=== PATIENT | male | born 1990 | race American Indian/Alaskan Native ===

== ENCOUNTER 2016-06-21 09:30 | Emergency (ER) | payer OTHER ==
[2016-06-21 10:11] LABS: Basophils % (Auto) 0.9 % (0.0-1.8); Eosinophils % (Auto) 1.2 % (0.0-4.3); Hematocrit 49.6 % (35.5-45.6); Hemoglobin 16.8 gm/dl (11.8-15.2); Mean Corpuscular HGB Conc 34 % (32-34); Mean Corpuscular Hemoglobin 31 pg (28-32); Mean Corpuscular Volume 91 fl (84-94); Platelet Count 203 K/mm3 (140-440); Red Blood Count 5.47 M/mm3 (3.65-5.03); Red Cell Distribution Width 14.3 % (13.2-15.2); White Blood Count 5.8 K/mm3 (4.5-11.0)
[2016-06-21 10:31] LABS: Alanine Aminotransferase 23 units/L (7-56); Albumin 4.3 g/dL (3.9-5); Albumin/Globulin Ratio 1.3 %; Alkaline Phosphatase 54 units/L (35-129); Anion Gap 22 mmol/L; Bilirubin,Total 1.2 mg/dL (0.1-1.2); Blood Urea Nitrogen 12 mg/dL (9-20); Calcium 9.3 mg/dL (8.4-10.2); Carbon Dioxide 23 mmol/L (22-30); Chloride 96.4 mmol/L (98-107); Glucose 74 mg/dL (75-100); Lipase 20 units/L (13-60); Potassium 4.1 mmol/L (3.6-5.0); Sodium 137 mmol/L (137-145); Total Protein 7.5 g/dL (6.3-8.2)
[2016-06-21 12:09] LABS: Bilirubin,Urine NEG (Negative); Blood,Urine NEG (Negative); Ketones,Urine 80 mg/dL (Negative); Leukocyte Esterase,Urine NEG (Negative); Mucus,Urine 2+ /HPF; Nitrite,Urine NEG (Negative)
--- NOTE | 2016-06-21 12:15 | Emergency Department Report ---
ED GI Bleed HPI - General Chief complaint: Abdominal Pain Stated complaint: STOMACH PAINS Time Seen by Provider: 06/21/16 11:17 Source: patient Mode of arrival: Ambulatory Limitations: No Limitations - History of Present Illness Initial comments: Patient complains of rectal pain and bleeding with bowel movements, patient states his been occurring for the past year and a half. Upon questioning patient also explains that he has frequent constipation. Patient says he has a diet made up mostly of "junk food". Patient denies anorexia, nausea vomiting diarrhea, abdominal pain, fever or chills, or testicular pain. Patient also denies any anal trauma. MD complaint: blood on toilet paper -: Gradual, month(s) (18) Radiation: other (rectal pain) Quality: dull Improves with: none Worsens with: bowel movement Context: other (constipation) Associated Symptoms: denies: abdominal pain, nausea, vomiting, epistaxis, fever/ chills, loss of appetite, malaise, easy bruising, rash, shortness of breath, syncope, weakness - Related Data Previous Rx's Medication Instructions Recorded Last Taken Type Docusate Sodium [Colace Clear CAP] 50 mg PO QDAY #150 capsule 06/21/16 Unknown Rx Glycerin [Glycerin Laxative] 5.4 gm RC QDAY #2 ml 06/21/16 Unknown Rx Allergies Allergy/AdvReac Type Severity Reaction Status Date / Time No Known Allergies Allergy Unverified 06/21/16 09:54 ED Review of Systems ROS: Stated complaint: STOMACH PAINS Other details as noted in HPI Constitutional: denies: chills, fever Eyes: denies: eye pain, eye discharge, vision change ENT: denies: ear pain, throat pain Respiratory: denies: cough, shortness of breath, wheezing Cardiovascular: denies: chest pain, palpitations Endocrine: no symptoms reported Gastrointestinal: constipation, hematochezia. denies: abdominal pain, nausea, vomiting, diarrhea, hematemesis Genitourinary: denies: urgency, dysuria Musculoskeletal: denies: back pain, joint swelling, arthralgia Skin: denies: rash, lesions Neurological: denies: headache, weakness, paresthesias, vertigo Psychiatric: denies: anxiety, depression Hematological/Lymphatic: denies: easy bleeding, easy bruising ED Past Medical Hx - Past Medical History Hx Hypertension: Yes - Surgical History Past Surgical History?: No - Social History Smoking Status: Current Every Day Smoker Substance Use Type: Alcohol, Cocaine, Marijuana, Methamphetamines - Medications Home Medications: Home Medications Medication Instructions Recorded Confirmed Last Taken Type Docusate Sodium [Colace Clear CAP] 50 mg PO QDAY #150 capsule 06/21/16 Unknown Rx Glycerin [Glycerin Laxative] 5.4 gm RC QDAY #2 ml 06/21/16 Unknown Rx ED Physical Exam - General Limitations: No Limitations General appearance: alert, in no apparent distress - Head Head exam: Present: atraumatic, normocephalic - Eye Eye exam: Present: normal appearance, PERRL, EOMI - ENT ENT exam: Present: mucous membranes moist - Neck Neck exam: Present: normal inspection - Respiratory Respiratory exam: Present: normal lung sounds bilaterally. Absent: respiratory distress, wheezes, rales, rhonchi, stridor, chest wall tenderness, accessory muscle use, decreased breath sounds, prolonged expiratory - Cardiovascular Cardiovascular Exam: Present: regular rate. Absent: systolic murmur, diastolic murmur, rubs, gallop - GI/Abdominal GI/Abdominal exam: Present: soft, normal bowel sounds. Absent: distended, tenderness, guarding, rebound, rigid - Rectal Rectal exam: Present: normal inspection, normal rectal tone. Absent: fecal impaction - exam: Present: normal inspection. Absent: testicular tenderness, urethral discharge, scrotal swelling - Extremities Exam Extremities exam: Present: normal inspection - Back Exam Back exam: Present: normal inspection. Absent: CVA tenderness (R), CVA tenderness (L) - Neurological Exam Neurological exam: Present: alert, oriented X3 - Psychiatric Psychiatric exam: Present: normal affect, normal mood - Skin Skin exam: Present: warm, dry, intact, normal color. Absent: rash ED Course Vital Signs 06/21/16 06/21/16 06/21/16 09:49 12:26 12:40 Temperature 98.8 F 98.1 F Pulse Rate 107 H 82 Respiratory 16 12 16 Rate Blood Pressure 138/94 Blood Pressure 124/85 [Left] O2 Sat by Pulse 97 98 Oximetry - Reevaluation(s) Reevaluation #1: 06/21/16 13:04 Heart rate 88 patient normotensive normal cardiac in no distress. ED Medical Decision Making - Lab Data Result diagrams: 06/21/16 10:00 06/21/16 10:00 Critical care attestation.: If time is entered above; I have spent that time in minutes in the direct care of this critically ill patient, excluding procedure time. ED Disposition Clinical Impression: Constipation Disposition: DISCHARGED TO HOME OR SELFCARE Is pt being admited?: No Condition: Stable Instructions: Constipation (ED) Prescriptions: Docusate Sodium [Colace Clear CAP] 50 mg PO QDAY #150 capsule Glycerin [Glycerin Laxative] 5.4 gm RC QDAY #2 ml Referrals: PRIMARY CARE, [Primary Care Provider] - 3-5 Days
[2016-06-21 12:41] VITALS: BP 124/85
--- NOTE | 2016-06-22 17:54 | Emergency Department Report ---
Blank Doc - Documentation Documentation: Patient return to the ED stating that he was here yesterday and discharged, states that he was supposed to receive a refill on his high blood pressure medicine but noticed it was not in his discharge paperwork, requesting refill on his benazepril and hydrochlorothiazide.
== END 2016-06-21 13:20 | disposition home or self-care (01) ==
LOC: ED 09:30
DX: K59.00 Constipation, unspecified (principal); I10 Essential (primary) hypertension; F17.200 Nicotine dependence, unspecified, uncomplicated; F12.10 Cannabis abuse, uncomplicated; F14.10 Cocaine abuse, uncomplicated; F15.10 Other stimulant abuse, uncomplicated
CPT/HCPCS: 36415; 80053; 81001; 83690; 85025; 99283

== ENCOUNTER 2017-03-22 02:31 | Emergency (ER) | payer SELFPAY ==
[2017-03-22 03:37] LABS: Basophils % (Auto) 0.8 % (0.0-1.8); Eosinophils % (Auto) 1.7 % (0.0-4.3); Hematocrit 43.6 % (35.5-45.6); Mean Corpuscular HGB Conc 34 % (32-34); Mean Corpuscular Hemoglobin 33 pg (28-32); Mean Corpuscular Volume 96 fl (84-94); Platelet Count 208 K/mm3 (140-440); Red Blood Count 4.55 M/mm3 (3.65-5.03); Red Cell Distribution Width 14.4 % (13.2-15.2); White Blood Count 5.9 K/mm3 (4.5-11.0)
[2017-03-22 03:38] VITALS: BP 114/70
[2017-03-22 04:03] LABS: Alanine Aminotransferase 27 units/L (7-56); Albumin 3.9 g/dL (3.9-5); Albumin/Globulin Ratio 1.3 %; Alkaline Phosphatase 50 units/L (35-129); Anion Gap 21 mmol/L; BUN/Creatinine Ratio 9; Blood Urea Nitrogen 7 mg/dL (9-20); Calcium 8.6 mg/dL (8.4-10.2); Carbon Dioxide 21 mmol/L (22-30); Chloride 101.4 mmol/L (98-107); Glucose 102 mg/dL (75-100); Lipase 34 units/L (13-60); Sodium 139 mmol/L (137-145); Total Protein 6.8 g/dL (6.3-8.2)
--- NOTE | 2017-03-22 11:31 | Emergency Department Report ---
ED Abdominal Pain HPI - General Chief Complaint: Abdominal Pain Stated Complaint: ABD PAIN Time Seen by Provider: 03/22/17 11:11 Source: patient Mode of arrival: Ambulatory Limitations: No Limitations - History of Present Illness Initial Comments: PT states he wants his liver checked. PT states he has been throwing up "green stuff" for a year. PT states he thinks he might have cirrhosis. PT reports occasional ETOH use. PT states he has a hx of a stomach ulcers MD Complaint: other (vomiting ) -: year(s) (one ) Location: diffuse Migration to: no migration Severity scale (0 -10): 3 Quality: cramping Consistency: intermittent Improves With: nothing Worsens With: vomiting Associated Symptoms: nausea, vomiting. denies: dysuria, hematemesis, hematochezia, hematuria - Related Data Previous Rx's Medication Instructions Recorded Last Taken Type Benazepril/Hydrochlorothiazide 1 each PO QDAY #30 tablet 06/22/16 Unknown Rx [Lotensin Hct 10-12.5 mg Tablet] Naproxen [Naprosyn TAB] 375 mg PO BID PRN #10 tablet 03/17/17 Unknown Rx Ondansetron [Zofran ODT TAB] 4 mg PO ONCE #8 tab.rapdis 03/22/17 Unknown Rx Allergies Allergy/AdvReac Type Severity Reaction Status Date / Time No Known Allergies Allergy Unverified 06/21/16 09:54 ED Review of Systems ROS: Stated complaint: ABD PAIN Other details as noted in HPI Comment: All other systems reviewed and negative Constitutional: malaise. denies: fever Cardiovascular: denies: chest pain Gastrointestinal: abdominal pain, nausea, vomiting. denies: hematemesis, melena , hematochezia Genitourinary: denies: dysuria, frequency, hematuria ED Past Medical Hx - Past Medical History Previous Medical History?: Yes Hx Hypertension: Yes Additional medical history: MS - Surgical History Past Surgical History?: No - Social History Smoking Status: Current Every Day Smoker Substance Use Type: Alcohol - Medications Home Medications: Home Medications Medication Instructions Recorded Confirmed Last Taken Type Benazepril/Hydrochlorothiazide 1 each PO QDAY #30 tablet 06/22/16 Unknown Rx [Lotensin Hct 10-12.5 mg Tablet] Naproxen [Naprosyn TAB] 375 mg PO BID PRN #10 tablet 03/17/17 Unknown Rx Ondansetron [Zofran ODT TAB] 4 mg PO ONCE #8 tab.rapdis 03/22/17 Unknown Rx ED Physical Exam - General Limitations: No Limitations General appearance: alert, in no apparent distress, other (thin) - Head Head exam: Present: atraumatic, normocephalic, normal inspection - Eye Eye exam: Present: normal appearance, PERRL, EOMI. Absent: conjunctival injection - ENT ENT exam: Present: normal exam, mucous membranes moist, normal external ear exam - Neck Neck exam: Present: normal inspection, full ROM - Respiratory Respiratory exam: Present: normal lung sounds bilaterally. Absent: respiratory distress, chest wall tenderness - Cardiovascular Cardiovascular Exam: Present: regular rate, normal rhythm, normal heart sounds - GI/Abdominal GI/Abdominal exam: Present: soft, normal bowel sounds. Absent: distended, tenderness, guarding, rebound, rigid - Extremities Exam Extremities exam: Present: normal inspection, full ROM, other (steady gait ) - Back Exam Back exam: Present: normal inspection, full ROM. Absent: tenderness, paraspinal tenderness, vertebral tenderness - Neurological Exam Neurological exam: Present: alert, oriented X3, normal gait - Skin Skin exam: Present: warm, dry, intact ED Course Vital Signs 03/22/17 03:10 Temperature 97.9 F Pulse Rate 86 Respiratory 18 Rate Blood Pressure 114/70 [Right] O2 Sat by Pulse 96 Oximetry - Reevaluation(s) Reevaluation #1: 03/22/17 12:50 PT aware of lab results. PT advised to decrease ETOH intake due to concern for cirrhosis. PT has been ambulatory in the ED, asking for food. - Pulse Oximetry Interpretation Digit-Finger Initial Pulse Oximetry Readin Actions Taken: none ED Medical Decision Making - Lab Data Result diagrams: 03/22/17 03:19 03/22/17 03:19 Laboratory Last Values WBC 5.9 K/mm3 (4.5-11.0) 03/22/17 03:19 RBC 4.55 M/mm3 (3.65-5.03) 03/22/17 03:19 Hgb 15.0 gm/dl (11.8-15.2) 03/22/17 03:19 Hct 43.6 % (35.5-45.6) 03/22/17 03:19 MCV 96 fl (84-94) H 03/22/17 03:19 MCH 33 pg (28-32) H 03/22/17 03:19 MCHC 34 % (32-34) 03/22/17 03:19 RDW 14.4 % (13.2-15.2) 03/22/17 03:19 Plt Count 208 K/mm3 (140-440) 03/22/17 03:19 Lymph % (Auto) 36.7 % (13.4-35.0) H 03/22/17 03:19 [place] % (Auto) 6.6 % (0.0-7.3) 03/22/17 03:19 Eos % (Auto) 1.7 % (0.0-4.3) 03/22/17 03:19 Baso % (Auto) 0.8 % (0.0-1.8) 03/22/17 03:19 Lymph # 2.2 K/mm3 (1.2-5.4) 03/22/17 03:19 [place] # 0.4 K/mm3 (0.0-0.8) 03/22/17 03:19 Eos # 0.1 K/mm3 (0.0-0.4) 03/22/17 03:19 Baso # 0.1 K/mm3 (0.0-0.1) 03/22/17 03:19 Seg Neutrophils % 54.2 % (40.0-70.0) 03/22/17 03:19 Seg Neutrophils # 3.2 K/mm3 (1.8-7.7) 03/22/17 03:19 Sodium 139 mmol/L (137-145) 03/22/17 03:19 Potassium 4.0 mmol/L (3.6-5.0) 03/22/17 03:19 Chloride 101.4 mmol/L (98-107) 03/22/17 03:19 Carbon Dioxide 21 mmol/L (22-30) L 03/22/17 03:19 Anion Gap 21 mmol/L 03/22/17 03:19 BUN 7 mg/dL (9-20) L 03/22/17 03:19 Creatinine 0.8 mg/dL (0.8-1.5) 03/22/17 03:19 Estimated GFR > 60 ml/min 03/22/17 03:19 BUN/Creatinine Ratio 9 % 03/22/17 03:19 Glucose 102 mg/dL (75-100) H 03/22/17 03:19 Calcium 8.6 mg/dL (8.4-10.2) 03/22/17 03:19 Total Bilirubin 0.40 mg/dL (0.1-1.2) 03/22/17 03:19 AST 39 units/L (5-40) 03/22/17 03:19 ALT 27 units/L (7-56) 03/22/17 03:19 Alkaline Phosphatase 50 units/L (35-129) 03/22/17 03:19 Total Protein 6.8 g/dL (6.3-8.2) 03/22/17 03:19 Albumin 3.9 g/dL (3.9-5) 03/22/17 03:19 Albumin/Globulin Ratio 1.3 % 03/22/17 03:19 Lipase 34 units/L (13-60) 03/22/17 03:19 Urine Color Yellow (Yellow) 03/22/17 11:51 Urine Turbidity Clear (Clear) 03/22/17 11:51 Urine pH 5.0 (5.0-7.0) 03/22/17 11:51 Ur Specific [place] 1.020 (1.003-1.030) 03/22/17 11:51 Urine Protein <15 mg/dl mg/dL (Negative) 03/22/17 11:51 Urine Glucose (UA) Neg mg/dL (Negative) 03/22/17 11:51 Urine Ketones Tr mg/dL (Negative) 03/22/17 11:51 Urine Blood Mod (Negative) 03/22/17 11:51 Urine Nitrite Neg (Negative) 03/22/17 11:51 Urine Bilirubin Neg (Negative) 03/22/17 11:51 Urine Urobilinogen 2.0 mg/dL (<2.0) 03/22/17 11:51 Ur Leukocyte Esterase Neg (Negative) 03/22/17 11:51 Urine WBC (Auto) 2.0 /HPF (0.0-6.0) 03/22/17 11:51 Urine RBC (Auto) < 1.0 /HPF (0.0-6.0) 03/22/17 11:51 U Epithel Cells (Auto) < 1.0 /HPF (0-13.0) 03/22/17 11:51 Urine Mucus Few /HPF 03/22/17 11:51 Urine Sperm Few /HPF (BEH[employer]IOR[employer]ES DEPARTMENT CHAIR) 03/22/17 11:51 - Differential Diagnosis gerd, cyclic vomiting, elevated liver enzymes Critical Care Time: No Critical care attestation.: If time is entered above; I have spent that time in minutes in the direct care of this critically ill patient, excluding procedure time. ED Disposition Clinical Impression: Cyclical vomiting Qualifiers: Vomiting Intractability: non-intractable Nausea presence: with nausea Qualified Code(s): G43.A0 - Cyclical vomiting, not intractable Disposition: TO HOME OR SELFCARE Is pt being admited?: No Does the pt Need Aspirin: No Condition: Stable Instructions: Acute Nausea and Vomiting (ED) Prescriptions: Ondansetron [Zofran ODT TAB] 4 mg PO ONCE #8 tab.rapdis Referrals: PRIMARY CARE, [Primary Care Provider] - 3-5 Days LENNY TO MD [Staff Physician] - 3-5 Days [facility] [Outside] - 3-5 Days Time of Disposition: 13:01
[2017-03-22 12:15] LABS: Bilirubin,Urine NEG (Negative); Blood,Urine MOD (Negative); Ketones,Urine TR mg/dL (Negative); Leukocyte Esterase,Urine NEG (Negative); Mucus,Urine FEW /HPF; Nitrite,Urine NEG (Negative); Protein,Urine <15 mg/dL mg/dL (Negative); RBC,Urine < 1.0 /HPF (0.0-6.0); Sperm,Urine FEW /HPF (NP)
[2017-03-22] MEDS ORDERED: ZOFRAN ODT PO ONE (12:48)
== END 2017-03-22 13:11 | disposition home or self-care (01) ==
LOC: ED 02:31
DX: G43.A0 Cyclical vomiting, in migraine, not intractable (principal); I10 Essential (primary) hypertension; F17.210 Nicotine dependence, cigarettes, uncomplicated
CPT/HCPCS: 36415; 80053; 81001; 83690; 85025; 99283; Q0162

== ENCOUNTER 2017-04-10 08:37 | Emergency (ER) | payer SELFPAY ==
[2017-04-10 19:04] VITALS: BP 115/79
--- NOTE | 2017-04-10 19:16 | Emergency Department Report ---
ED General Adult HPI - General Chief complaint: Skin/Abscess/Foreign Body Stated complaint: hemoroids Time Seen by Provider: 04/10/17 16:41 Source: patient Mode of arrival: Ambulatory Limitations: No Limitations - History of Present Illness Initial comments: This is a 26-year-old male nontoxic, well nourished in appearance, no acute signs of distress presents to the ED with c/o of chronic intermittent hemorrhoids x2 years. Patient stated this comes and goes. Patient denies follow- up with a primary care doctor and stated he only came in today because it was started to hurt again. Patient denies any rectal bleeding, nausea, vomiting, chest pain, fever, chills, headache, stiff neck, numbness, tingling, back pain. Patient denies any allergies. PMH includes HTN. MD Complaint: Hemorrhoids -: year(s) (2) Radiation: non-radiation Severity scale (0 -10): 8 Quality: aching Consistency: constant Improves with: none Worsens with: none Associated Symptoms: denies other symptoms. denies: confusion, chest pain, cough, diaphoresis, fever/chills, headaches, loss of appetite, malaise, nausea/ vomiting, rash, seizure, shortness of breath, syncope, weakness Treatments Prior to Arrival: none - Related Data Previous Rx's Medication Instructions Recorded Last Taken Type Benazepril/Hydrochlorothiazide 1 each PO QDAY #30 tablet 06/22/16 Unknown Rx [Lotensin Hct 10-12.5 mg Tablet] Naproxen [Naprosyn TAB] 375 mg PO BID PRN #10 tablet 03/17/17 Unknown Rx Ondansetron [Zofran ODT TAB] 4 mg PO ONCE #8 tab.rapdis 03/22/17 Unknown Rx Docusate Sodium [Colace] 100 mg PO BID PRN #30 capsule 04/10/17 Unknown Rx Hydrocortisone/Lidocaine/Aloe 1 each RC Q8H 7 Days #1 kit 04/10/17 Unknown Rx [Lidocaine-Hc 2-2% Cream Kit] Allergies Allergy/AdvReac Type Severity Reaction Status Date / Time No Known Allergies Allergy Unverified 06/21/16 09:54 ED Review of Systems ROS: Stated complaint: hemoroids Other details as noted in HPI Constitutional: denies: chills, fever Eyes: denies: eye pain, eye discharge, vision change ENT: denies: ear pain, throat pain Respiratory: denies: cough, shortness of breath, wheezing Cardiovascular: denies: chest pain, palpitations Endocrine: no symptoms reported Gastrointestinal: other (hemorrhoids). denies: abdominal pain, nausea, diarrhea Genitourinary: denies: urgency, dysuria Musculoskeletal: denies: back pain, joint swelling, arthralgia Skin: denies: rash, lesions Neurological: denies: headache, weakness, paresthesias Psychiatric: denies: anxiety, depression Hematological/Lymphatic: denies: easy bleeding, easy bruising ED Past Medical Hx - Past Medical History Previous Medical History?: Yes Hx Hypertension: Yes Additional medical history: MS - Surgical History Past Surgical History?: No - Social History Smoking Status: Current Every Day Smoker Substance Use Type: Alcohol - Medications Home Medications: Home Medications Medication Instructions Recorded Confirmed Last Taken Type Benazepril/Hydrochlorothiazide 1 each PO QDAY #30 tablet 06/22/16 Unknown Rx [Lotensin Hct 10-12.5 mg Tablet] Naproxen [Naprosyn TAB] 375 mg PO BID PRN #10 tablet 03/17/17 Unknown Rx Ondansetron [Zofran ODT TAB] 4 mg PO ONCE #8 tab.rapdis 03/22/17 Unknown Rx Docusate Sodium [Colace] 100 mg PO BID PRN #30 capsule 04/10/17 Unknown Rx Hydrocortisone/Lidocaine/Aloe 1 each RC Q8H 7 Days #1 kit 04/10/17 Unknown Rx [Lidocaine-Hc 2-2% Cream Kit] ED Physical Exam - General Limitations: No Limitations General appearance: alert, in no apparent distress - Head Head exam: Present: atraumatic, normocephalic, normal inspection - Eye Eye exam: Present: normal appearance, PERRL, EOMI. Absent: scleral icterus, conjunctival injection, nystagmus, periorbital swelling, periorbital tenderness Pupils: Present: normal accommodation - ENT ENT exam: Present: normal exam, normal orophraynx, mucous membranes moist, TM's normal bilaterally, normal external ear exam - Neck Neck exam: Present: normal inspection, full ROM. Absent: tenderness, meningismus, lymphadenopathy, thyromegaly - Respiratory Respiratory exam: Present: normal lung sounds bilaterally. Absent: respiratory distress, wheezes, rales, rhonchi, stridor, chest wall tenderness, accessory muscle use, decreased breath sounds, prolonged expiratory - Cardiovascular Cardiovascular Exam: Present: regular rate, normal rhythm, normal heart sounds. Absent: bradycardia, tachycardia, irregular rhythm, systolic murmur, diastolic murmur, rubs, gallop - GI/Abdominal GI/Abdominal exam: Present: soft, normal bowel sounds. Absent: distended, tenderness, guarding, rebound, rigid, diminished bowel sounds - Rectal Rectal exam: Present: deferred, hemorrhoids (Reducible. No signs of thrombus, bleeding. ) - Extremities Exam Extremities exam: Present: normal inspection, full ROM, normal capillary refill. Absent: tenderness, pedal edema, joint swelling, calf tenderness - Back Exam Back exam: Present: normal inspection, full ROM. Absent: tenderness, CVA tenderness (R), CVA tenderness (L), muscle spasm, paraspinal tenderness, vertebral tenderness, rash noted - Neurological Exam Neurological exam: Present: alert, oriented X3, CN II-XII intact, normal gait, reflexes normal - Psychiatric Psychiatric exam: Present: normal affect, normal mood - Skin Skin exam: Present: warm, dry, intact, normal color. Absent: rash ED Course Vital Signs 04/10/17 04/10/17 09:17 19:03 Temperature 98.5 F Pulse Rate 76 52 L Respiratory 16 18 Rate Blood Pressure 129/81 Blood Pressure 115/79 [Right] O2 Sat by Pulse 100 Oximetry - Reevaluation(s) Reevaluation #1: 04/10/17 19:19 Patient is speaking in full sentences with no signs of distress noted. ED Medical Decision Making - Medical Decision Making This is a 26-year-old male that presents with hemorrhoids. Patient is stable and was examined by me. Patient instructed about sitz bath and f/u with colorectal surgeon. Patient also was educated on increasing fiber intake and drinking enough fluid to keep his urine clear or pale yellow. Patient was instructed to seek medical attention is he has increased pain and swelling that are not controlled by treatment or medicine, has uncontrolled bleeding, difficulty having a bowel movement or unable to have a bowel movement or having pain or inflammation outside the area of the hemorrhoids. Patient was instructed to follow-up with a primary care doctor/colon rectal surgeon in 24 hours or if symptoms worsening and continue to return to the emergency room as soon as possible. Critical care attestation.: If time is entered above; I have spent that time in minutes in the direct care of this critically ill patient, excluding procedure time. ED Disposition Clinical Impression: Hemorrhoids Qualifiers: Hemorrhoid type: unspecified Qualified Code(s): K64.9 - Unspecified hemorrhoids Disposition: TO HOME OR SELFCARE Is pt being admited?: No Does the pt Need Aspirin: No Condition: Stable Instructions: Laxative, Stool Softeners (By mouth), Hemorrhoids (ED), High Fiber Diet (ED), Sitz Bath (GEN) Additional Instructions: Follow-up with a primary care doctor/colon rectal surgeon in 24 hours or if symptoms worsen and continue return to emergency room as soon as possible. Seek medical attention is he has increased pain and swelling that are not controlled by treatment or medicine, has uncontrolled bleeding, difficulty having a bowel movement or unable to have a bowel movement or having pain or inflammation outside the area of the hemorrhoids. Prescriptions: Docusate Sodium [Colace] 100 mg PO BID PRN #30 capsule PRN Reason: constaption Hydrocortisone/Lidocaine/Aloe [Lidocaine-Hc 2-2% Cream Kit] 1 each RC Q8H 7 Days #1 kit Referrals: PRIMARY CARE, [Primary Care Provider] - 3-5 Days LENNY TATUM MD [Staff Physician] - 3-5 Days JEYSON GASPAR MD [Staff Physician] - 3-5 Days [facility] [Outside] - 3-5 Days [facility] [Outside] - 3-5 Days Forms: Work/School Release Form(ED)
== END 2017-04-10 19:30 | disposition home or self-care (01) ==
LOC: ED 08:37
DX: K64.9 Unspecified hemorrhoids (principal); I10 Essential (primary) hypertension; F17.200 Nicotine dependence, unspecified, uncomplicated
CPT/HCPCS: 99282

== ENCOUNTER 2017-05-23 03:53 | Emergency (ER) | payer SELFPAY ==
[2017-05-23 04:06] VITALS: BP 114/79
== END 2017-05-23 06:00 | disposition left against medical advice (07) ==
LOC: ED 03:53
DX: Z53.21 Procedure and treatment not carried out due to patient leaving prior to being seen by health care provider (principal)

== ENCOUNTER 2017-06-27 10:19 | Emergency (ER) | payer SELFPAY ==
[2017-06-27] MEDS ORDERED: MOTRIN PO ONE (12:20)
--- NOTE | 2017-06-27 12:30 | Emergency Department Report ---
ED Lower Extremity HPI - General Chief Complaint: Extremity Injury, Lower Stated Complaint: ANKLE PAIN Time Seen by Provider: 06/27/17 12:20 Source: patient, EMS Mode of arrival: Wheelchair Limitations: Other - History of Present Illness Initial Comments: This is a 27-year-old male nontoxic, well nourished in appearance, no acute signs of distress presents to the ED with c/o of left ankle and foot pain x1 day. Patient stated that he jumped from a 2nd floor window in his grandmothers house. Patient stated he was playing around and just decided to jump. Patient denies any other injuries. Patient denies any numbness, tingling, fever, chills , headache, nausea, vomiting, chest pain, shortness of breathe. Patient denies any allergies. PMH includes HTN. MD Complaint: ankle injury, foot injury -: This morning Injury: Ankle: Left, Foot: Left Type of Injury: inversion Place: home Severity: mild Severity scale (0 -10): 8 Improves With: nothing Worsens With: weight bearing Context: fall Associated Symptoms: swelling, unable to bear weight. denies: snap/pop sensation, numbness, tingling, able to partially bear weight, ambulatory - Related Data Previous Rx's Medication Instructions Recorded Last Taken Type Benazepril/Hydrochlorothiazide 1 each PO QDAY #30 tablet 06/22/16 Unknown Rx [Lotensin Hct 10-12.5 mg Tablet] Naproxen [Naprosyn TAB] 375 mg PO BID PRN #10 tablet 03/17/17 Unknown Rx Ondansetron [Zofran ODT TAB] 4 mg PO ONCE #8 tab.rapdis 03/22/17 Unknown Rx Docusate Sodium [Colace] 100 mg PO BID PRN #30 capsule 04/10/17 Unknown Rx Hydrocortisone/Lidocaine/Aloe 1 each RC Q8H 7 Days #1 kit 04/10/17 Unknown Rx [Lidocaine-Hc 2-2% Cream Kit] Ibuprofen [Motrin] 600 mg PO Q8H PRN #30 tablet 06/27/17 Unknown Rx Allergies Allergy/AdvReac Type Severity Reaction Status Date / Time No Known Allergies Allergy Unverified 06/21/16 09:54 ED Review of Systems ROS: Stated complaint: ANKLE PAIN Other details as noted in HPI Constitutional: denies: chills, fever Eyes: denies: eye pain, eye discharge, vision change ENT: denies: ear pain, throat pain Respiratory: denies: cough, shortness of breath, wheezing Cardiovascular: denies: chest pain, palpitations Endocrine: no symptoms reported Gastrointestinal: denies: abdominal pain, nausea, diarrhea Genitourinary: denies: urgency, dysuria Musculoskeletal: arthralgia. denies: back pain, joint swelling Skin: denies: rash, lesions Neurological: denies: headache, weakness, paresthesias Psychiatric: denies: anxiety, depression Hematological/Lymphatic: denies: easy bleeding, easy bruising ED Past Medical Hx - Past Medical History Previous Medical History?: Yes Hx Hypertension: Yes Additional medical history: MS - Surgical History Past Surgical History?: Yes Additional Surgical History: hemorrhoids - Social History Smoking Status: Current Every Day Smoker Substance Use Type: Alcohol, Cocaine, Marijuana - Medications Home Medications: Home Medications Medication Instructions Recorded Confirmed Last Taken Type Benazepril/Hydrochlorothiazide 1 each PO QDAY #30 tablet 06/22/16 Unknown Rx [Lotensin Hct 10-12.5 mg Tablet] Naproxen [Naprosyn TAB] 375 mg PO BID PRN #10 tablet 03/17/17 Unknown Rx Ondansetron [Zofran ODT TAB] 4 mg PO ONCE #8 tab.rapdis 03/22/17 Unknown Rx Docusate Sodium [Colace] 100 mg PO BID PRN #30 capsule 04/10/17 Unknown Rx Hydrocortisone/Lidocaine/Aloe 1 each RC Q8H 7 Days #1 kit 04/10/17 Unknown Rx [Lidocaine-Hc 2-2% Cream Kit] Ibuprofen [Motrin] 600 mg PO Q8H PRN #30 tablet 06/27/17 Unknown Rx ED Physical Exam - General Limitations: Other General appearance: alert, in no apparent distress - Head Head exam: Present: atraumatic, normocephalic - Eye Eye exam: Present: normal appearance - ENT ENT exam: Present: mucous membranes moist - Neck Neck exam: Present: normal inspection - Respiratory Respiratory exam: Present: normal lung sounds bilaterally. Absent: respiratory distress - Cardiovascular Cardiovascular Exam: Present: regular rate, normal rhythm. Absent: systolic murmur, diastolic murmur, rubs, gallop - GI/Abdominal GI/Abdominal exam: Present: soft, normal bowel sounds - Rectal Rectal exam: Present: deferred - Extremities Exam Extremities exam: Present: normal inspection, full ROM, tenderness, normal capillary refill. Absent: pedal edema, joint swelling, calf tenderness - Expanded Lower Extremity Exam Left Hip exam: Present: normal inspection, full ROM, external rotation, internal rotation, pelvic stability. Absent: tenderness, swelling, abrasion, laceration , ecchymosis, deformity, crepidus, dislocation, erythema, shortening Upper Leg exam: Present: normal inspection, full ROM. Absent: tenderness, swelling, abrasion, laceration, ecchymosis, deformity, crepidus, dislocation, erythema Knee exam: Present: normal inspection, full ROM, full knee extension. Absent: tenderness, swelling, abrasion, laceration, ecchymosis, deformity, crepidus, dislocation, erythema, effusion, pain w/ pronation/supination, posterior draw sign, pain/laxity with valgus, pain/laxity with varus Lower Leg exam: Present: normal inspection, full ROM. Absent: tenderness, swelling, abrasion, laceration, ecchymosis, deformity, crepidus, dislocation, erythema, palpable cord, Tracey's sign Ankle exam: Present: normal inspection, full ROM, tenderness, swelling. Absent : abrasion, laceration, ecchymosis, deformity, crepidus, dislocation, erythema, anterior draw sign Foot/Toe exam: Present: normal inspection, full ROM, tenderness, swelling. Absent: abrasion, laceration, ecchymosis, deformity, crepidus, dislocation, erythema, amputation, puncture wound, foreign body, calcaneal tenderness, tenderness at base of 5th metatarsal, nail avulsion, subungual hematoma Neuro vascular tendon exam: Present: no vascular compromise. Absent: pulse deficit, abnormal cap refill, motor deficit, sensory deficit, tendon deficit, extremity cold to touch, pallor, abnormal 2-point discrimination, decreased fine /light touch, foot drop, peroneal nerve deficit, significant pain with passive ROM of distal joint Gait: Positive: unable to bear weight 1 - pain with swelling 1 - pain with swelling - Back Exam Back exam: Present: normal inspection, full ROM. Absent: tenderness, CVA tenderness (R), CVA tenderness (L), muscle spasm, paraspinal tenderness, vertebral tenderness, rash noted - Neurological Exam Neurological exam: Present: alert, oriented X3, CN II-XII intact, normal gait, reflexes normal - Psychiatric Psychiatric exam: Present: normal affect, normal mood - Skin Skin exam: Present: warm, dry, intact, normal color. Absent: rash - Other Other exam information: Negative brown test. ED Course Vital Signs 06/27/17 06/27/17 10:29 12:51 Temperature 98.5 F Pulse Rate 87 Respiratory 20 16 Rate Blood Pressure 120/62 O2 Sat by Pulse 99 Oximetry - Reevaluation(s) Reevaluation #1: 06/27/17 12:31 Patient is speaking in full sentences with no signs of distress noted. ED Lower Extremity MDM - Medical Decision Making This is a 27-year-old male that presents with left ankle and foot sprain. Patient is stable and was examined by me. Xray of foot and ankle has been obtained and dictated by radiologist. Patient is notified of xray results with no questions noted by the patient. Patient received Motrin in the ED. Patient also received Ice to the extremity. Patient is dicharged with ankle stirrup and crutches and was educated how to use crutches by RN. Patient was instructed to RICE therapy. Patient was instructed to Follow-up with a orthopedic doctor in 3- 5 days or if symptoms worsen and continue return to emergency room as soon as possible. At time of discharge, the patient does not seem toxic or ill in appearance. No acute signs of distress noted. Patient agrees to discharge treatment plan of care. No further questions noted by the patient. Critical care attestation.: If time is entered above; I have spent that time in minutes in the direct care of this critically ill patient, excluding procedure time. ED Disposition Clinical Impression: Left ankle sprain Qualifiers: Encounter type: initial encounter Involved ligament of ankle: unspecified ligament Qualified Code(s): S93.402A - Sprain of unspecified ligament of left ankle, initial encounter Sprain of left foot Qualifiers: Encounter type: initial encounter Qualified Code(s): S93.602A - Unspecified sprain of left foot, initial encounter Disposition: TO HOME OR SELFCARE Is pt being admited?: No Does the pt Need Aspirin: No Condition: Stable Instructions: Crutch Instructions (ED), Ankle Sprain (ED), Ankle Stirrup Splint (ED), Ibuprofen (By mouth), RICE Therapy (ED) Additional Instructions: Follow-up with a orthopedic doctor in 3-5 days or if symptoms worsen and continue return to emergency room as soon as possible. Rest, elevate, and ice extremity. Prescriptions: Ibuprofen [Motrin] 600 mg PO Q8H PRN #30 tablet PRN Reason: Pain Referrals: PRIMARY CAREMD [Primary Care Provider] - 3-5 Days SULMA IVERSON MD [Staff Physician] - 3-[address] [facility] [place] [Outside] - 3-5 Days [facility] [Outside] - 3-5 Days Forms: Work/School Release Form(ED)
--- NOTE | 2017-06-27 12:57 | XRay Report ---
LEFT ANKLE, 3 views: History: left ankle pain. Bone mineralization is normal. No acute osseous abnormality or joint pathology is identified. The soft tissues are unremarkable. IMPRESSION: Normal study.
--- NOTE | 2017-06-27 12:58 | XRay Report ---
LEFT FOOT, 3 views: History: Pain. The bony architecture is intact. Bony alignment is normal. No soft tissue abnormalities are seen. The joint spaces appear preserved. IMPRESSION: Normal left foot.
[2017-06-27 13:34] VITALS: BP 124/82
== END 2017-06-27 13:33 | disposition home or self-care (01) ==
LOC: ED 10:19
DX: S93.402A Sprain of unspecified ligament of left ankle, initial encounter (principal); S93.602A Unspecified sprain of left foot, initial encounter; I10 Essential (primary) hypertension; F12.10 Cannabis abuse, uncomplicated; F14.10 Cocaine abuse, uncomplicated; G35 Multiple sclerosis; F17.200 Nicotine dependence, unspecified, uncomplicated; X58.XXXA Exposure to other specified factors, initial encounter; Y93.89 Activity, other specified; Y92.098 Other place in other non-institutional residence as the place of occurrence of the external cause; Y99.8 Other external cause status
CPT/HCPCS: 99284

== ENCOUNTER 2018-02-28 00:32 | Emergency (ER) | payer SELFPAY ==
--- NOTE | 2018-02-28 03:06 | Emergency Department Report ---
ED General Adult HPI - General Chief complaint: Rectal Pain Stated complaint: HEMRRHOID PAIN Time Seen by Provider: 02/28/18 03:02 Source: patient Mode of arrival: Ambulatory Limitations: No Limitations - History of Present Illness Initial comments: 27-year-old -[place] male comes in reporting he has hemorrhoid pain off and on 1 month. Patient reports it hurts to use the bathroom. He states that he's had some positive blood on toilet paper and some pain with bowel movement feels like is coming out. Reports a history of hypertension and hemorrhoids. She reports he currently takes no medication has no known drug allergies. -: month(s) (1) Location: buttocks Severity scale (0 -10): 9 Consistency: intermittent Improves with: none Worsens with: other (bowel movement) Treatments Prior to Arrival: none - Related Data Previous Rx's Medication Instructions Recorded Last Taken Type Benazepril/Hydrochlorothiazide 1 each PO QDAY #30 tablet 06/22/16 Unknown Rx [Lotensin Hct 10-12.5 mg Tablet] Naproxen [Naprosyn TAB] 375 mg PO BID PRN #10 tablet 03/17/17 Unknown Rx Ondansetron [Zofran ODT TAB] 4 mg PO ONCE #8 tab.rapdis 03/22/17 Unknown Rx Docusate Sodium [Colace] 100 mg PO BID PRN #30 capsule 04/10/17 Unknown Rx Hydrocortisone/Lidocaine/Aloe 1 each RC Q8H 7 Days #1 kit 04/10/17 Unknown Rx [Lidocaine-Hc 2-2% Cream Kit] Ibuprofen [Motrin 600 MG tab] 600 mg PO Q8H PRN #30 tablet 02/28/18 Unknown Rx Allergies Allergy/AdvReac Type Severity Reaction Status Date / Time No Known Allergies Allergy Unverified 06/21/16 09:54 ED Review of Systems ROS: Stated complaint: HEMRRHOID PAIN Other details as noted in HPI Comment: All other systems reviewed and negative Genitourinary: other (rectal pain) ED Past Medical Hx - Past Medical History Previous Medical History?: Yes Hx Hypertension: Yes Additional medical history: MS - Surgical History Past Surgical History?: No Additional Surgical History: hemorrhoids - Social History Smoking Status: Current Every Day Smoker Substance Use Type: Alcohol, Marijuana - Medications Home Medications: Home Medications Medication Instructions Recorded Confirmed Last Taken Type Benazepril/Hydrochlorothiazide 1 each PO QDAY #30 tablet 06/22/16 Unknown Rx [Lotensin Hct 10-12.5 mg Tablet] Naproxen [Naprosyn TAB] 375 mg PO BID PRN #10 tablet 03/17/17 Unknown Rx Ondansetron [Zofran ODT TAB] 4 mg PO ONCE #8 tab.rapdis 03/22/17 Unknown Rx Docusate Sodium [Colace] 100 mg PO BID PRN #30 capsule 04/10/17 Unknown Rx Hydrocortisone/Lidocaine/Aloe 1 each RC Q8H 7 Days #1 kit 04/10/17 Unknown Rx [Lidocaine-Hc 2-2% Cream Kit] Ibuprofen [Motrin 600 MG tab] 600 mg PO Q8H PRN #30 tablet 02/28/18 Unknown Rx ED Physical Exam - General Limitations: No Limitations General appearance: alert, in no apparent distress - Head Head exam: Present: atraumatic, normocephalic - ENT ENT exam: Present: mucous membranes moist - Rectal Rectal exam: Present: decreased rectal tone, heme (-) stool. Absent: hemorrhoids, tenderness, prostate tenderness, prostate enlargement - Neurological Exam Neurological exam: Present: alert, oriented X3 - Psychiatric Psychiatric exam: Present: normal affect, normal mood - Skin Skin exam: Present: warm, dry, intact, normal color. Absent: rash ED Course Vital Signs 02/28/18 00:37 Temperature 98.4 F Pulse Rate 88 Respiratory 18 Rate Blood Pressure 138/93 O2 Sat by Pulse 99 Oximetry ED Medical Decision Making - Medical Decision Making Patient has been evaluated by this provider in fast track. Ibuprofen 600 mg has been ordered for pain management Discharge patient on ibuprofen and referral to a wood heel flap inserter. Critical care attestation.: If time is entered above; I have spent that time in minutes in the direct care of this critically ill patient, excluding procedure time. ED Disposition Clinical Impression: Rectal or anal pain Disposition: [id number] TO HOME OR SELFCARE Is pt being admited?: No Does the pt Need Aspirin: No Condition: Stable Additional Instructions: Please take Tylenol or ibuprofen for pain management. I recommend following up with a wood heel flap inserter. Symptoms persist or gets worse. Prescriptions: Ibuprofen [Motrin 600 MG tab] 600 mg PO Q8H PRN #30 tablet PRN Reason: Pain Referrals: PRIMARY CARE, [Primary Care Provider] - 3-5 Days [facility] [Provider Group] - 3-5 Days
[2018-02-28] MEDS ORDERED: MOTRIN PO ONE (03:19)
[2018-02-28 03:36] VITALS: BP 141/100
== END 2018-02-28 03:37 | disposition home or self-care (01) ==
LOC: ED 00:32
DX: K62.89 Other specified diseases of anus and rectum (principal); I10 Essential (primary) hypertension; F17.200 Nicotine dependence, unspecified, uncomplicated; F12.10 Cannabis abuse, uncomplicated; Z79.899 Other long term (current) drug therapy
CPT/HCPCS: 99282